=== PATIENT | male | born 1955 | race Caucasian/White ===

== ENCOUNTER 2017-06-17 12:33 | Emergency (ER) | payer OTHER ==
[~2017-06-17 12:33] MED LIST: ACET325; ADVI200C9; TAMS0.4C67
[2017-06-17 12:52] VITALS: BP 140/74; PULSE 99; RESP 20; TEMP 98.1; O2SAT 96
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
[2017-06-17] MEDS ORDERED: ROBA500T PO (13:56)
[2017-06-17] MEDS ORDERED: METHOCARBAMOL 500 MG TAB PO ONE (14:00)
== END 2017-06-17 14:26 | disposition home or self-care (01) ==
LOC: PHEFT 12:33
DX: S13.4XXA Sprain of ligaments of cervical spine, initial encounter (principal); M50.323 Other cervical disc degeneration at C6-C7 level; E78.00 Pure hypercholesterolemia, unspecified; N40.0 Benign prostatic hyperplasia without lower urinary tract symptoms; F17.200 Nicotine dependence, unspecified, uncomplicated; V43.52XA Car driver injured in collision with other type car in traffic accident, initial encounter
CPT/HCPCS: 72125; 99283